=== PATIENT | female | born 1980 | race Caucasian/White ===

== ENCOUNTER 2017-05-05 18:31 | Emergency (ER) | payer MEDICARE, MEDICAID ==
[2017-05-05 19:19] VITALS: BP 125/68
[2017-05-05] MEDS ORDERED: Azithromycin TAB* 250 MG PO ONE (21:28)
--- NOTE | 2017-05-05 21:30 | UC ---
Throat Pain/Nasal Wojciech HPI - HPI Summary HPI Summary: 36 yo female with sore throat/ear ache and congestion x 4 days sore throat worse symptom has felt feverish myalgias mild PEREIRA - History of Current Complaint Chief Complaint: UCRespiratory Stated Complaint: ST/NASAL CONGESTION/PEREIRA Time Seen by Provider: 05/05/17 21:24 Hx Obtained From: Patient Hx Last Menstrual Period: unknown, depo shot Onset/Duration: Gradual Onset, Lasting Days Severity: Mild Pain Intensity: 4 Pain Scale Used: 0-10 Numeric Associated Signs & Symptoms: Positive: Sinus Discomfort, Nasal Discharge - Epiglottits Risk Factors Epiglottis Risk Factors: Negative - Allergies/Home Medications Allergies/Adverse Reactions: Allergies Allergy/AdvReac Type Severity Reaction Status Date / Time Amoxicillin Allergy Intermediate Hives Verified 05/05/17 19:19 Ezetimibe [From Zetia] Allergy Intermediate Unknown Verified 05/05/17 19:19 Reaction Details Penicillins Allergy Intermediate Rash Verified 05/05/17 19:19 Risperidone Allergy Intermediate lactate Verified 05/05/17 19:19 Home Medications: Home Medications Lurasidone (NF) [Latuda (NF)] 80 mg PO DAILY 05/05/17 [History Confirmed ] Nabumetone TAB* [Relafen TAB*] 750 mg PO BID 05/05/17 [History Confirmed ] Topiramate [Topamax 100 mg tab] 1 tab PO DAILY 05/05/17 [History Confirmed 05/05] celeCOXIB CAP* [CeleBREX CAP*] 60 mg PO DAILY 05/05/17 [History Confirmed ] PMH/Surg Hx/FS Hx/Imm Hx Previously Healthy: Yes - Surgical History Surgical History: Yes Surgery Procedure, Year, and Place: gastric bypass 2003, 2 ganglion cysts removed, torn R rotator cuff - Family History Known Family History: Positive: Cardiac Disease, Hypertension - Social History Alcohol Use: None Substance Use Type: None Smoking Status (MU): Never Smoked Tobacco Review of Systems Constitutional: Fever, Chills, Fatigue Skin: Negative Eyes: Negative ENT: Sore Throat, Ear Ache, Nasal Discharge Respiratory: Negative Cardiovascular: Negative Gastrointestinal: Negative Genitourinary: Negative Motor: Negative Neurovascular: Negative Musculoskeletal: Myalgia Neurological: Headache Psychological: Negative All Other Systems Reviewed And Are Negative: Yes Physical Exam Triage Information Reviewed: Yes Appearance: Well-Appearing, No Pain Distress, Well-Nourished Vital Signs: Initial Vital Signs Temp 97.6 F 05/05/17 19:15 Pulse 92 05/05/17 19:15 Resp 18 05/05/17 19:15 BP 125/68 05/05/17 19:15 Pulse Ox 98 05/05/17 19:15 Vital Signs Reviewed: Yes Eyes: Positive: Conjunctiva Clear ENT: Positive: Hearing grossly normal, Pharyngeal erythema, Nasal congestion, Nasal drainage, TMs normal, Tonsillar swelling Neck: Positive: Supple, Enlarged Nodes @ - ant cervical Respiratory: Positive: Lungs clear, Normal breath sounds, No respiratory distress, No accessory muscle use Cardiovascular: Positive: RRR, No Murmur Musculoskeletal: Positive: ROM Intact, No Edema Neurological: Positive: Alert Psychological Exam: Normal Skin Exam: Normal Throat Pain/Nasal Course/Dx - Differential Dx/Diagnosis Provider Diagnoses: acute tonsillitis Discharge - Discharge Plan Condition: Stable Disposition: HOME Prescriptions: Azithromycin TAB* [Zithromax TAB*] 250 mg PO DAILY #6 tab Patient Education Materials: Pharyngitis (ED) Referrals: Arian Castro MD [Primary Care Provider] - Additional Instructions: recheck in 4-5 days if not better recheck sooner if symptoms worsen
== END 2017-05-05 21:40 | disposition home or self-care (01) ==
LOC: UCCORT 18:31
DX: J03.90 Acute tonsillitis, unspecified (principal); Z98.84 Bariatric surgery status; Z88.1 Allergy status to other antibiotic agents; Z88.0 Allergy status to penicillin; Z88.8 Allergy status to other drugs, medicaments and biological substances
CPT/HCPCS: 99202; A9270-GY; G0463

== ENCOUNTER 2018-12-19 14:18 | Emergency (ER) | payer MEDICARE, MEDICAID ==
[2018-12-19 14:37] VITALS: BP 108/84
--- NOTE | 2018-12-19 14:49 | UC ---
Upper Extremity HPI - HPI Summary HPI Summary: 38 year old female with PMH + for MH, HTn, hyperlipidemia, RC surgery R arm presnts with L shoulder pain x 2 days. began after lifting overhead, felt a pop and didn't have pain initially, but developed over few hours to where she is now unable to lift overhead or move her arm away from her body without extreme pain. no trauma, no prior neck, shoulder L injuries. + tingling intermittently that is resolved with movement. - History of Current Complaint Chief Complaint: UCUpperExtremity Stated Complaint: LEFT SHOULDER CONCERN Time Seen by Provider: 12/19/18 14:37 Hx Obtained From: Patient Hx Last Menstrual Period: unknown, depo shot ?: No Onset/Duration: Sudden Onset, Lasting Days Severity Initially: Severe Severity Currently: Severe Pain Intensity: 9 Pain Scale Used: 0-10 Numeric Location Of Pain: Is Discrete @ - l shoudler Character: Sharp, Aching, Throbbing, Spasmodic - Allergies/Home Medications Allergies/Adverse Reactions: Allergies Allergy/AdvReac Type Severity Reaction Status Date / Time amoxicillin Allergy Hives Verified 12/19/18 14:42 ezetimibe [From Zetia] Allergy Unknown Verified 12/19/18 14:42 Reaction Details Penicillins Allergy Rash Verified 12/19/18 14:42 risperidone Allergy See Comment Verified 12/19/18 14:42 Home Medications: Home Medications LORazepam TAB(*) [Ativan 0.5 MG TAB (*)] 0.5 mg PO BEDTIME PRN 12/19/18 [ History Confirmed 12/19/18] Zolpidem TAB* [Ambien*] 10 mg PO BEDTIME PRN 12/19/18 [History Confirmed ] PMH/Surg Hx/FS Hx/Imm Hx Previously Healthy: Yes - htn, elevaged lipds - Surgical History Surgical History: Yes Surgery Procedure, Year, and Place: gastric bypass 2003, 2 ganglion cysts removed, torn R rotator cuff - Family History Known Family History: Positive: Cardiac Disease, Hypertension - Social History Alcohol Use: None Substance Use Type: None Smoking Status (MU): Never Smoked Tobacco Review of Systems All Other Systems Reviewed And Are Negative: Yes Musculoskeletal: Positive: Arthralgia, Decreased ROM, Myalgia Is Patient Immunocompromised?: No Physical Exam Triage Information Reviewed: Yes Appearance: Well-Appearing, No Pain Distress, Well-Nourished Vital Signs: Initial Vital Signs Temp 97.3 F 12/19/18 14:34 Pulse 87 12/19/18 14:34 Resp 16 12/19/18 14:34 BP 108/84 12/19/18 14:34 Pulse Ox 100 12/19/18 14:34 Vital Signs Reviewed: Yes Eyes: Positive: Conjunctiva Clear Musculoskeletal: Positive: No Edema, ROM Limited @ - PROM R shoulder FF to 90, abd 70 with pain at endpoint with distacting patient. with patient aware of movement, FF to 40, ABD to 30. + hakins, neers, speeds, belly, bear, supraspinatus/ infraspinatus testing with pt complainting ot pain at all positions and refusing to do testing properly due to pain. + bicep tendon tenderness, + paraspinal tenderness cervical. negative spurlings. full ROM of elbow. Neurological: Positive: Alert, Muscle Tone Normal - strength 5/5 with R shoulder , elbow, neck flexion, extension, Other: - SITLT distal to R shoulder, plaster tender strength 5/5 b/l OK sign WNL R hand Psychological Exam: Normal Skin Exam: Normal Skin: Positive: Other - no erythema, skin breakdown, bruising Upper Extremity Course/Dx - Course Course Of Treatment: like RC sprain - sling for comfort, steroids to decrease inflammation, follow up with ortho for further eval. - Differential Dx/Diagnosis Provider Diagnosis: Rotator cuff (capsule) sprain Discharge - Sign-Out/Discharge Documenting (check all that apply): Patient Departure All imaging exams completed and their final reports reviewed: No Studies - Discharge Plan Condition: Good Disposition: HOME Prescriptions: predniSONE [Prednisone 20 MG TAB] 20 mg PO SEE INSTRUCTIONS #6 tablet Patient Education Materials: Muscle Spasm (ED) Referrals: Arian Castro MD [Primary Care Provider] - Kwadwo Rivero MD [Medical Doctor] - Additional Instructions: - Steroids daily to decrease pain and inflammation - Ice shoulder as needed for pain - SLing for comfort, remove at least 3-5 times daily. - Billing Disposition and Condition Condition: GOOD Disposition: Home
== END 2018-12-19 14:51 | disposition home or self-care (01) ==
LOC: UCCORT 14:18
DX: S43.422A Sprain of left rotator cuff capsule, initial encounter (principal); X50.9XXA Other and unspecified overexertion or strenuous movements or postures, initial encounter; Y92.9 Unspecified place or not applicable; Z88.0 Allergy status to penicillin; Z88.8 Allergy status to other drugs, medicaments and biological substances
CPT/HCPCS: 99212; G0463

== ENCOUNTER 2019-02-21 20:16 | Emergency (ER) | payer MEDICAID, MEDICARE ==
[2019-02-21 21:03] VITALS: BP 130/84
--- NOTE | 2019-02-21 21:31 | UC ---
Hand/Wrist HPI - HPI Summary HPI Summary: 38-year-old woman comes in with a chief complaint of left hand and wrist pain. Patient fell onto just prior to arrival. She does have full range of motion of the hand and wrist. She's got an ecchymotic area on the left palm is tender to palpation and slightly raised. Her chief concern is what the ecchymotic area is. She is not worried that anything is broken. - History Of Current Complaint Chief Complaint: UCUpperExtremity Stated Complaint: LEFT WRIST/HAND INJ Time Seen by Provider: 02/21/19 21:24 Hx Last Menstrual Period: unknown, depo shot Pain Intensity: 5 - Allergies/Home Medications Allergies/Adverse Reactions: Allergies Allergy/AdvReac Type Severity Reaction Status Date / Time amoxicillin Allergy Hives Verified 02/21/19 21:04 ezetimibe [From Zetia] Allergy Unknown Verified 02/21/19 21:04 Reaction Details Penicillins Allergy Rash Verified 02/21/19 21:04 risperidone Allergy See Comment Verified 02/21/19 21:04 Home Medications: Home Medications Calcium Carbonate/Vitamin D3 [Calcium 500 + Vit D Caplet] 1 each PO DAILY [History Confirmed 02/21/19] hydrOXYzine HCL TAB* [Atarax TAB 50 MG *] 50 mg PO DAILY 02/21/19 [History Confirmed 02/21/19] hydrOXYzine HCL TAB* [Atarax TAB 50 MG *] 100 mg PO BEDTIME 02/21/19 [History Confirmed 02/21/19] traZODone TAB* [Desyrel TAB*] 100 mg PO BEDTIME 02/21/19 [History Confirmed 01/10] PMH/Surg Hx/FS Hx/Imm Hx Previously Healthy: Yes Endocrine History: Hypothyroidism, Dyslipidemia - Surgical History Surgical History: Yes Surgery Procedure, Year, and Place: gastric bypass 2003, 2 ganglion cysts removed, torn R rotator cuff - Family History Known Family History: Positive: Cardiac Disease, Hypertension - Social History Alcohol Use: None Substance Use Type: None Smoking Status (MU): Never Smoked Tobacco Review of Systems All Other Systems Reviewed And Are Negative: Yes Constitutional: Positive: Negative Skin: Positive: Bruising - see hpi Eyes: Positive: Negative ENT: Positive: Negative Respiratory: Positive: Negative Cardiovascular: Positive: Negative Gastrointestinal: Positive: Negative Motor: Positive: Negative Neurovascular: Positive: Negative Musculoskeletal: Positive: Other: - see hpi Neurological: Positive: Negative Psychological: Positive: Negative Is Patient Immunocompromised?: No Physical Exam Triage Information Reviewed: Yes Appearance: Well-Appearing, No Pain Distress, Well-Nourished Vital Signs: Initial Vital Signs Temp 98.0 F 02/21/19 20:59 Pulse 78 02/21/19 20:59 Resp 16 02/21/19 20:59 BP 130/84 02/21/19 20:59 Pulse Ox 100 02/21/19 20:59 Vital Signs Reviewed: Yes Eye Exam: Normal Eyes: Positive: Conjunctiva Clear Neck exam: Normal Neck: Positive: Supple Respiratory: Positive: No respiratory distress Musculoskeletal: Positive: Other: - Left hand has a 2 cm x 5 mm slightly raised ecchymotic area without a skin break on the palmar surface. Is consistent with a bruise. Fingers and wrists have full range of motion normal capillary refill no sensation deficit normal strength. Neurological Exam: Normal Neurological: Positive: Alert, Muscle Tone Normal Psychological Exam: Normal Psychological: Positive: Age Appropriate Behavior Skin: Positive: Other - Left palm, slightly raised 2cm x 5mm eccymosis. No skin break. Hand/Wrist Course/Dx - Course Course Of Treatment: I discussed imaging of the left hand and wrist with the patient. Patient declined x-rays she is not worried about a broken bone. She is more concerned about the ecchymotic area and her palm. This is consistent with an intradermal hematoma. Hand and wrist have full range of motion full-strength normal capillary refill no sensation deficit. No evidence of any skin break or foreign body. At the patient know that she take ibuprofen and I would expect this to heal up on its own. Get rechecked if worse or any other questions or concerns. - Differential Dx/Diagnosis Provider Diagnosis: Contusion of left hand, Left wrist sprain, Sprain of left hand Discharge - Sign-Out/Discharge Documenting (check all that apply): Patient Departure All imaging exams completed and their final reports reviewed: No Studies - Discharge Plan Condition: Stable Disposition: HOME Patient Education Materials: Contusion in Adults (ED), Hand Sprain (ED), Wrist Sprain (ED) Referrals: Arian Castro MD [Primary Care Provider] - Additional Instructions: FOLLOW UP WITH YOUR DOCTOR IF NOT COMPLETELY IMPROVED. GET REEVALUATED SOONER FOR ANY WORSENING OF YOUR CONDITION OR ANY QUESTIONS OR CONCERNS. - Billing Disposition and Condition Condition: STABLE Disposition: Home
== END 2019-02-21 21:36 | disposition home or self-care (01) ==
LOC: UCCORT 20:16
DX: S60.222A Contusion of left hand, initial encounter (principal); S63.502A Unspecified sprain of left wrist, initial encounter; S63.92XA Sprain of unspecified part of left wrist and hand, initial encounter; W19.XXXA Unspecified fall, initial encounter; Y92.9 Unspecified place or not applicable
CPT/HCPCS: 99211; G0463

== ENCOUNTER 2019-09-17 18:34 | Emergency (ER) | payer MEDICAID, OTHER ==
--- OUTSIDE RECORDS SUMMARY | 2019-09-17 18:41 | XMS REPORT ---
:1980 Author Name GitaJenna guerrerodith Address [address] [place] [address] Care Team Providers Name Role Phone Lisbet Allison Unavailable Unavailable PROBLEMS Type Condition ICD9-CM Code XIF14-ZP Code Onset Condition SNOMED Code Dates Status Problem Anal spasm K59.4 Active 41073337 Problem Morbid (severe) E66.01 Active 520709975 obesity due to excess calories Problem Pelvic and R10.2 Active 679306828 perineal pain ALLERGIES Substance Reaction Event Type Date Status penicillin rash Drug Allergy Jul, Active amoxicillin rash Drug Allergy Jul, Active Risperdal Drug Allergy Jul, Active Zetia diarrhea Drug Allergy Jul, Active ENCOUNTERS Encounter Location Date Diagnosis [facility] 103 Aug, OBGYN [place], [place] [id number] [facility] Jul, [place]BG[place] [id number] [facility] 103 Jul, Encounter for OBGYN [facility], gynecological examination [place] [id number] (general) (routine) without abnormal findings Z01.419 ; Encounter for screening for malignant neoplasm of cervix Z12.4 and Encounter for surveillance of injectable contraceptive Z30.42 [facility] 103 15 May, 2019 Encounter for other OBGYN [facility], general counseling and [place] [id number] advice on contraception Z30.09 [facility] 103 15 Feb, 2019 Encounter for other OBGYN [facility], general counseling and [place] [id number] advice on contraception Z30.09 [facility] 103 Feb, Encounter for OBGYN [facility], contraceptive management, [place] [id number] unspecified Z30.9 [facility] 103 Feb, Encounter for OBGYN [facility], contraceptive management, [place] [id number] unspecified Z30.9 [facility] 103 Nov, OBGYN [place], [place] [id number] [facility] 103 Nov, Encounter for OBGYN [facility], contraceptive management, [place] [id number] unspecified Z30.9 [facility] 103 Sep, OBGYN [place] [id number] [facility] 103 Sep, [place]BG[place] [id number] [facility] 103 Jul, [place] [id number] [facility] 103 Jul, [place] [id number] [facility] 103 Jul, [place]BG[place] [id number] [facility] 103 Jul, Encounter for OBGYN [facility], gynecological examination [place] [id number] (general) (routine) without abnormal findings Z01.419 ; Encounter for contraceptive management, unspecified Z30.9 ; Morbid (severe) obesity due to excess calories E66.01 and Encounter for screening for malignant neoplasm of cervix Z12.4 [facility] 103 Jun, OBGYN [place], [place] [id number] [facility] 103 March, [place]BG[place] [id number] [facility] 103 Dec, OBG[place] [id number] [facility] 103 Sep, [place]BG[place] [id number] [facility] 103 Sep, Encounter for other OBGYN [facility], general counseling and [place] [id number] advice on contraception Z30.09 [facility] 103 Jun, Encounter for OBGYN [facility], contraceptive management, [place] [id number] unspecified Z30.9 [facility] 103 Apr, OBGYN [place], [place] [id number] [facility] 103 Jan, OBGYN [place] [id number] [facility] 103 Oct, Encounter for OBGYN [facility], contraceptive management, [place] [id number] unspecified Z30.9 [facility] 103 Oct, Counseling and instruction OBGYN [facility], in natural family planning [place] [id number] to avoid Z30.02 [facility] 103 Oct, Encounter for other OBGYN [facility], general counseling and [place] [id number] advice on contraception Z30.09 [facility] 103 Aug, Pelvic and perineal pain OBGYN [facility], R10.2 and Anal spasm K59.4 [place] [id number] [facility] 103 Jul, Other specified OBGYN [facility], noninflammatory disorders [place] [id number] of vagina N89.8 ; Pelvic and perineal pain R10.2 and Anal spasm K59.4 [facility] 103 Jul, Pelvic and perineal pain OBGYN [facility], R10.2 [place] [id number] [facility] 103 15 Jul, 2016 OBGYN [facility], [place] [id number] [facility] 103 13 Jul, 2016 Candidiasis of vulva and OBGYN [facility], vagina B37.3 [place] [id number] [facility] 103 12 Jul, 2016 OBGYN [place], [place] [id number] [facility] 103 06 Jul, [facility] [place] [id number] (general) (routine) with abnormal findings Z01.411 ; Encounter for screening for malignant neoplasm of cervix Z12.4 ; Encounter for screening for infections with a predominantly sexual mode of transmission Z11.3 ; Pelvic and perineal pain R10.2 ; Encounter for prescription of emergency contraception Z30.012 and Encounter for other general counseling and advice on contraception Z30.09 IMMUNIZATIONS No Known Immunizations SOCIAL HISTORY Never Assessed REASON FOR REFERRAL FUNCTIONAL STATUS PLAN OF CARE Activity Details Follow Up 1 Year Reason: Pending Test ThinPrep Pap Test _ use Standing Order VITAL SIGNS Height 63 in 2019-08-10 Weight 246 lbs 2019-08-10 BMI 43.57 kg/m2 2019-08-10 Blood pressure systolic 124 mm Hg 2019-08-10 Blood pressure diastolic 68 mm Hg 2019-08-10 MEDICATIONS Medication Instructions Dosage Frequency Start End Duration Status Date Date hydroxyzine orally 2 times a 1 tab(s) 12h Active hydrochloride 50 mg day verapamil 120 mg/24 orally once a day 1 cap(s) 24h 30 day(s) Active hours amitriptyline 100 mg orally once a day 1 tab(s) Active (at bedtime) MedroxyPROGESTERone intramuscularly 150 mg 84 Active Acetate 150 mg/mL once Calcium 600+D 600 orally once a day 1 tab(s) 24h Active mg-200 units Vitamin B-12 1000 mcg orally once a day 1 tab(s) 24h Active Depo-Provera intramuscularly 150 mg Feb, day(s) Active Contraceptive 150 once 2019 mg/mL atorvastatin 80 mg orally once a day 1 tab(s) 24h Active levothyroxine 100 mcg orally once a day 1 tab(s) 24h Active (0.1 mg) Latuda 120 mg orally once a day 1 tab(s) 24h Active Ambien 5 mg orally once a day 1 tab(s) Active (at bedtime) nabumetone 750 mg orally BID 1 tab(s) 12h Active Vitamin D3 50,000 orally once a 1 cap(s) Active intl units week Topamax 100 mg orally QD 2 tab(s) 24h Active Flintstones with Iron chewed once a day 2 tab(s) 24h Active Chewable Multiple Vitamins with Iron PROCEDURES No Known procedures RESULTS No Results REASON FOR VISIT Annual Insurance Providers [facility] Member Patient Patient Patient Patient Patient Subscriber Subscriber Subscriber Group Insurance Plan Plan Plan Plan ID Relationship Address Phone Name Date of ID Name Date of No Type Insurance Insurance Insurance Coverage to Subscriber Address Phone Name Dates Medicaid [phone] Medicaid self Kelsy [id number] [facility] [address] [address] [phone] [place] self Kelsy [id number] [address] [address] MEDICAL (GENERAL) HISTORY Type Description Date Medical History morbid obesity Medical History back pain Medical History anxiety Medical History insomnia Medical History depression Medical History hypercholesterolemia Medical History hypothyroidism Medical History sciatic nerve Medical History bulging disc Medical History migraines Surgical History gastric bypass 2003 Surgical History Rt rotator cuff 2011 Surgical History cholecystectomy 2013 Surgical History ganglion cyst removed from Rt hand 2006 Surgical History wisdom teeth extraction Hospitalization History gastric bypass 2003 Hospitalization History psych 1994 Hospitalization History psych 1998 Hospitalization History psych 2000 Hospitalization History psych 2009
--- OUTSIDE RECORDS SUMMARY | 2019-09-17 18:41 | XMS REPORT ---
:1980 Author Organization [facility] Address [address] [place] [address] Care Team Providers Name Role Phone Magali Bruner Unavailable Unavailable PROBLEMS Type Condition ICD9-CM Code [id number] Code Onset Condition SNOMED Code Dates Status Problem Anal spasm K59.4 Active 85616261 Problem Morbid (severe) E66.01 Active 174187781 obesity due to excess calories Problem Pelvic and R10.2 Active 276148802 perineal pain ALLERGIES No Information ENCOUNTERS Encounter Location Date Diagnosis [facility] [address] Aug, OBGYN [place], [place] [id number] [facility] [address] Jul, [place]BGYN [place], [place] [id number] [facility] 103 Jul, Encounter for OBGYN [facility], gynecological examination [place] [id number] (general) (routine) without abnormal findings Z01.419 ; Encounter for screening for malignant neoplasm of cervix Z12.4 and Encounter for surveillance of injectable contraceptive Z30.42 [facility] 103 May, Encounter for other OBGYN [facility], general counseling and [place] [id number] advice on contraception Z30.09 [facility] 103 Feb, Encounter for other OBGYN [facility], general counseling and [place] [id number] advice on contraception Z30.09 [facility] 103 Feb, Encounter for OBGYN [facility], contraceptive management, [place] [id number] unspecified Z30.9 [facility] 103 Feb, Encounter for OBGYN [facility], contraceptive management, [place] [id number] unspecified Z30.9 [facility] 103 Nov, OBGYN [place], [place] [id number] [facility] 103 Nov, Encounter for OBGYN [facility], contraceptive management, [place] [id number] unspecified Z30.9 [facility] 103 Sep, OBGYN [place], [place] [id number] [facility] 103 Sep, [place] [id number] [facility] 103 Jul, [place]BG[place] [id number] [facility] 103 Jul, OBG[place] [id number] [facility] 103 Jul, [place]BGYN [place], [place] [id number] [facility] 103 Jul, Encounter for OBGYN [facility], gynecological examination [place] [id number] (general) (routine) without abnormal findings Z01.419 ; Encounter for contraceptive management, unspecified Z30.9 ; Morbid (severe) obesity due to excess calories E66.01 and Encounter for screening for malignant neoplasm of cervix Z12.4 [facility] 103 Jun, OBGYN [place], [place] [id number] [facility] 103 March, OBGYN [place] [id number] [facility] 103 Dec, OBGYN [place] [id number] [facility] 103 Sep, OBG[place] [id number] [facility] 103 Sep, Encounter for other OBGYN [facility], general counseling and [place] [id number] advice on contraception Z30.09 [facility] 103 Jun, Encounter for OBGYN [facility], contraceptive management, [place] [id number] unspecified Z30.9 [facility] 103 Apr, OBG[place] [id number] [facility] 103 Jan, [place]BG[place] [id number] [facility] 103 Oct, Encounter for OBGYN [facility], contraceptive management, [place] [id number] unspecified Z30.9 [facility] 103 Oct, Counseling and instruction OBGYN [facility], in natural family planning [place] [id number] to avoid Z30.02 [facility] 103 Oct, Encounter for other OBGYN [facility], general counseling and [place] [id number] advice on contraception Z30.09 [facility] 103 Aug, Pelvic and perineal pain OBGYN [facility], R10.2 and Anal spasm K59.4 [place] [id number] [facility] 103 Jul, Other specified OBGYN [facility], noninflammatory disorders [place] [id number] of vagina N89.8 ; Pelvic and perineal pain R10.2 and Anal spasm K59.4 [facility] 103 Jul, Pelvic and perineal pain OBGYN [facility], R10.2 [place] [id number] [facility] 103 Jul, OBGYN [place], [place] [id number] [facility] 103 13 Jul, 2016 Candidiasis of vulva and OBGYN [facility], vagina B37.3 [place] [id number] [facility] 103 12 Jul, 2016 OBGYN [place], [place] [id number] [facility] 103 06 Jul, [facility] [place] [id number] (general) (routine) with abnormal findings Z01.411 ; [...] FOR REFERRAL FUNCTIONAL STATUS PLAN OF CARE VITAL SIGNS MEDICATIONS Medication Instructions Dosage Frequency Start End Duration Status Date Date Ambien 5 mg orally once a day 1 tab(s) Active (at bedtime) Vitamin D3 50,000 orally once a 1 cap(s) Active intl units week verapamil 120 mg/24 orally once a day 1 cap(s) 24h 30 day(s) Active hours hydroxyzine orally 2 times a 1 tab(s) 12h Active hydrochloride 50 mg day Latuda 120 mg orally once a day 1 tab(s) 24h Active levothyroxine 100 mcg orally once a day 1 tab(s) 24h Active (0.1 mg) Vitamin B-12 1000 mcg orally once a day 1 tab(s) 24h Active MedroxyPROGESTERone intramuscularly 150 mg 84 Active Acetate 150 mg/mL once Topamax 100 mg orally QD 2 tab(s) 24h Active amitriptyline 100 mg orally once a day 1 tab(s) Active (at bedtime) nabumetone 750 mg orally BID 1 tab(s) 12h Active Flintstones with Iron chewed once a day 2 tab(s) 24h Active Chewable Multiple Vitamins with Iron atorvastatin 80 mg orally once a day 1 tab(s) 24h Active Depo-Provera intramuscularly 150 mg Jul, day(s) Active Contraceptive 150 once 2019 mg/mL Calcium 600+D 600 orally once a day 1 tab(s) 24h Active mg-200 units PROCEDURES No Known procedures RESULTS No Results REASON FOR VISIT Depo Rx Insurance Providers [facility] Health Health Member Patient Patient Patient Patient Patient Subscriber Subscriber Subscriber Group Insurance Plan Plan Plan Plan ID Relationship Address Phone Name Date of ID Name Date of No Type Insurance Insurance Insurance Coverage to Subscriber Address Phone Name Dates Medicaid [phone] Medicaid self Kelsy [id number] [facility] [address] [address] [phone] [place] self Kelys [id number] [place] [id number] [facility] [phone] MEDICAL (GENERAL) HISTORY Type Description Date Medical History morbid obesity Medical History back pain Medical History anxiety Medical History insomnia Medical History depression Medical History hypercholesterolemia Medical History hypothyroidism Medical History sciatic nerve Medical History bulging disc Medical History migraines Surgical History gastric bypass 2004 Surgical History Rt rotator cuff 2012 Surgical History cholecystectomy 2013 Surgical History ganglion cyst removed from Rt hand 2006 Surgical History wisdom teeth extraction Hospitalization History gastric bypass 2003 Hospitalization History psych 1994 Hospitalization History psych 1998 Hospitalization History psych 2000 Hospitalization History psych 2009
[2019-09-17 18:49] VITALS: BP 120/77
--- NOTE | 2019-09-17 19:05 | UC ---
Ear Complaint HPI - HPI Summary HPI Summary: C/O possible FB/ insect in the right ear canal. Keeps hearing something in the canal. Has URI symptoms with cough, congestion and sore throat. - History of Current Complaint Chief Complaint: UCEar Stated Complaint: POSSIBLE FB RIGHT EAR Hx Obtained From: Patient Hx Last Menstrual Period: depo ?: No Onset/Duration: Gradual Onset, Lasting Days - 5, Still Present Severity Initially: Mild Severity Currently: Mild Pain Intensity: 0 Aggravating Factors: Nothing Alleviating Factors: Nothing Associated Signs/Symptoms: Positive: Foreign Body Sensation, URI Symptoms - Allergies/Home Medications Allergies/Adverse Reactions: Allergies Allergy/AdvReac Type Severity Reaction Status Date / Time amoxicillin Allergy Hives Verified 09/17/19 18:41 ezetimibe [From Zetia] Allergy Unknown Verified 09/17/19 18:41 Reaction Details Penicillins Allergy Rash Verified 09/17/19 18:41 risperidone Allergy See Comment Verified 09/17/19 18:41 Home Medications: Home Medications Verapamil TAB* [Calan TAB*] 120 mg PO BEDTIME 09/17/19 [History Confirmed ] PMH/Surg Hx/FS Hx/Imm Hx Endocrine History: Thyroid Disease, Dyslipidemia Neurological History: Migraine Psychological History: Schizophrenia - Surgical History Surgical History: Yes Surgery Procedure, Year, and Place: gastric bypass 2003, 3 ganglion cysts removed, torn R rotator cuff. cholecystectomy--2011 - Family History Known Family History: Positive: Cardiac Disease, Hypertension - Social History Occupation: Employed Full-time Lives: Alone Alcohol Use: None Substance Use Type: None Smoking Status (MU): Never Smoked Tobacco Review of Systems All Other Systems Reviewed And Are Negative: Yes ENT: Positive: Sore Throat, Ear Ache, Nasal Discharge Respiratory: Positive: Cough Physical Exam Triage Information Reviewed: Yes Appearance: Well-Appearing, No Pain Distress, Obese Vital Signs: Initial Vital Signs Temp 97.2 F 09/17/19 18:45 Pulse 100 09/17/19 18:45 Resp 16 09/17/19 18:45 BP 120/77 09/17/19 18:45 Pulse Ox 100 09/17/19 18:45 Vital Signs Reviewed: Yes Eyes: Positive: Conjunctiva Clear ENT: Positive: Pharynx normal, Nasal congestion, TMs normal - and canal is clear AD Neck exam: Normal Respiratory Exam: Normal Cardiovascular Exam: Normal Musculoskeletal Exam: Normal Neurological Exam: Normal Psychological Exam: Normal Skin Exam: Normal Ear Complaint Course/Dx - Differential Dx/Diagnosis Differential Diagnosis/HQI/PQRI: Barotrauma, Otitis Externa, Otitis Media, URI Provider Diagnosis: Upper respiratory infection, Dysfunction of right eustachian tube Discharge ED - Sign-Out/Discharge Documenting (check all that apply): Patient Departure All imaging exams completed and their final reports reviewed: No Studies - Discharge Plan Condition: Stable Disposition: HOME Patient Education Materials: Upper Respiratory Infection (ED) Referrals: Arian Castro MD [Primary Care Provider] - Additional Instructions: NASAL SPRAYS AND DROPS: Afrin in the PUMP/ MIST bottle (Get generic 12 hours nasal decongestant spray). Tilt your head down and look at the floor while doing the spray. Decongestant nasal sprays and drops often give dramatic relief from congestion. They are often recommended for patients with sinus infection to assist with sinus drainage. Persons with high blood pressure should consult the doctor before using these nasal sprays. Afrin and Solomon-Synephrine are common kema-gxy-unuhkpd preparations. They should not be used for more than five days, as "rebound" congestion can occur - - the congestion flares as the drug wears off. A way of dealing with this rebound congestion problem is to medicate only one nostril each time, allowing the other nostril to recover from the medicine' s effects. When you no longer need the drug during the day, spray only one nostril each night. This helps you sleep well without severe rebound congestion. Call the doctor if you develop severe headache, palpitations, or chest pain. EUSTATION TUBE DYSFUNCTION: The tube that allows the middle ear to equalize the pressure with the outside air is blocked. This can be due to colds, allergies, smoke, or other irritants. Short term treatment can include Afrin, sudafed and nasal cortisone sprays for allergies. - Billing Disposition and Condition Condition: STABLE Disposition: Home
== END 2019-09-17 19:18 | disposition home or self-care (01) ==
LOC: UCCORT 18:34
DX: J06.9 Acute upper respiratory infection, unspecified (principal); H69.91 Unspecified Eustachian tube disorder, right ear; E66.9 Obesity, unspecified; G43.909 Migraine, unspecified, not intractable, without status migrainosus; Z79.899 Other long term (current) drug therapy; Z88.0 Allergy status to penicillin; Z88.8 Allergy status to other drugs, medicaments and biological substances
CPT/HCPCS: 99211; G0463

== ENCOUNTER 2019-11-27 12:46 | Emergency (ER) | payer OTHER ==
--- OUTSIDE RECORDS SUMMARY | 2019-11-27 13:03 | XMS REPORT | Continuity of Care Document ---
:1980 External Reference #:[id number] Author Name Arian Castro MD Address [address] [place] [id number] Care Team Providers Name Role Phone Willy Mittal MD - Orthopaedic Care Team Information Clinical Academic Allergist Surgery Jose Lei DR Care Team Information Clinical Academic Allergist [phone] Problems Active Problems Provider Date Hypoglycemia Arian Castro MD Onset: 09/30/2012 Vitamin D deficiency Arian Castro MD Onset: 03/11/2012 Carpal tunnel syndrome Arian Castro MD Onset: 07/06/2008 Constipation Arian Castro MD Onset: 08/09/2007 Low back pain Arian Castro MD Onset: 08/09/2007 Chronic schizoaffective schizophrenia Arian Castro MD Onset: 2004 Morbid obesity Arian Castro MD Onset: 02/20/2005 Pure hypercholesterolemia Arian Castro MD Onset: 02/20/2005 Hypothyroidism Arian Castro MD Onset: 02/20/2005 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 Arian Castro MD Onset: 12/2015 psychotic features Factor V Leiden mutation Arian Castro MD Onset: 04/12/2016 Cobalamin deficiency Arian Castro MD Onset: 05/26/2016 History of bariatric surgical procedure Arian Castro MD Onset: 2017 Migraine without aura, not refractory Arian Castro MD Onset: 2018 Social History Type Date Description Comments Sex Unknown ETOH Use Never used alcohol Tobacco Use Start: Unknown Patient has never smoked Smoking Status Reviewed: 02/16/19 Patient has never smoked Allergies, Adverse Reactions, Alerts Active Allergies Reaction Severity Comments Date Amoxicillin 06/22/2007 Risperidone 02/19/2005 Penicillin 12/03/2014 Ceclor 12/03/2014 Zetia 12/03/2014 Medications Active Medications SIG Qnty Indications Ordering Date Provider Verapamil HCL ER take one tablet 30tabs G43.009 Digiovanna, 06/26/2019 120mg by mouth every MD Arian Tablets ER other day for 1 week then dc Animal Shapes/Iron Chew & Swallow 2 60units Z98.84 Digiovanna, 05/25/2019 18mg Tablets By Mouth MD Arian Chewtabs Once Daily Levothyroxine Sodium 1 by mouth every 30tabs E03.9 Digiovanna, 05/01/2019 day MD Arian 125mcg Tablets Sumatriptan Succinate take 1 tablet 30tabs R51 Digiovanna, 05/01/2019 daily if needed MD Arian 50mg Tablets for headache, max 6/week Hydroxyzine Pamoate 1 by mouth every Digiovanna, 02/16/2019 50mg morning, 2 at MD Arian Capsules night Trazodone HCL take one tablet 30tabs Digiovanna, 02/16/2019 100mg by mouth at MD Arian Tablets bedtime Nabumetone Take 1 & 1/2 90tabs M25.559 Digiovanna, 11/28/2018 500mg Tablets Tablets By Mouth MD Arian Two Times A Day With Food as Needed Amitriptyline HCL take 1/2 tablet 30tabs G44.209 Eliseiovanjosé luis, 08/20/2017 100mg by mouth at MD Arian Tablets bedtime for 1 week, then 1/4 tab for 1 week then dc G47.00 F33.2 Vitamin B-12 2 by mouth every otc D51.9 Arian Castro, 05/26/2016 1000mcg day Tablets Vitamin D take 2 capsules by 10caps E55.9 Arian Castro, 10/10/2015 (Ergocalciferol) mouth once a week [id number] Capsules Topamax 2 by mouth QHS F25.8 Unknown 04/02/2015 100mg Tablets F33.2 Atorvastatin Calcium Take One Tablet 90tabs E78.00 Arian Castro, 80mg By Mouth Every MD Tablets Evening Calcium Take One Tablet 60tabs Z98.84 Arian Castro, 10/21/2012 Carbonate-Vitamin D By Mouth Twice A MD Day [id number] Tablets E55.9 Acetaminophen 2 po q 4 hours 100tabs Arian Castro 04/21/2005 325mg Tablets prn MD Lisa 1.5 Tab Daily F25.8 Unknown 80mg Tablets F33.2 Depo-Provera 150mg intramuscular every 3 Unknown 150mg/ml Suspension months History Medications Doxycycline 1 tab by mouth 14caps J01.90 Ashley Schwarz, 09/19/2019 - Monohydrate twice a day 09/26/2019 100mg for 7 days Capsules Medications Administered in Office Medication SIG Qnty Indications Ordering Provider Date Depo Medrol 40 MG Arian Castro MD 09/19/2018 Injection Immunizations CPT Code Status Date Vaccine Reaction Lot # [id number] Given 09/13/2017 Tetanus And Diptheria Toxoid 7 Years And [id number] Older Preserv Free [id number] Given 05/03/2000 Meningococcal Immunization [id number] Refused 10/03/2019 Influenza Vac, Quadrivalent, Split, 0.5mL Dosage, Im Use [id number] Refused 09/14/2018 Flu Vaccine NOS WILL NOT BE GETTING Q2035 Refused 05/23/2018 Afluria Imunization [id number] Refused 07/11/2012 Afluria Or Fluvirin Flu Vac Intramuscular Vital Signs Date Vital Result Comment 10/03/2019 9:40am Weight 251.00 lb Heart Rate 72 /min BP Systolic 120 mmHg BP Diastolic 78 mmHg Respiratory Rate 18 /min Height 63 inches 5'3" BMI (Body Mass Index) 44.5 kg/m2 09/19/2019 2:23pm Body Temperature 99.6 F Weight 241.00 lb Heart Rate 76 /min BP Systolic 120 mmHg BP Diastolic 74 mmHg Respiratory Rate 18 /min Height 63 inches 5'3" BMI (Body Mass Index) 42.7 kg/m2 Results Test Acquired Date Facility Test Result H/L Range Note Lipid Treatment 04/20/2019 [facility] Cholesterol 209 mg/dL High 50-199 1 Triglycerides 99 mg/dL 30-200 HDL 42 mg/dL 35-85 2 Chol/ HDL Ratio 5.0 ratio 3.7-5.6 VLDL 20 mg/dL 2-29 LDL (Calc) 148 mg/dL High 20-99 3 Alt 22 U/L 3-42 Ast 26 U/L 8-42 Laboratory test finding 04/20/2019 [facility] TSH 4.24 uIU/mL 0.35-4.94 Vitamin D 25 Hydroxy 17 ng/mL Low 30-100 4 Vitamin B12 813 pg/mL 180-914 CBC with Auto Diff-fcmg 04/20/2019 [facility] WBC 6.0 K/uL 4.1-11.0 RBC 4.32 M/uL 4.00-5.40 Hemoglobin 13.8 gm/dL 12.0-16.0 Hematocrit 41.2 % 36.0-47.0 MCV 95.3 fL 80.0-97.0 MCH 32.0 pg 27.0-32.0 MCHC 33.6 g/dL 32.0-36.0 RDW 13.3 % 11.5-14.5 PLT Count 259 K/ul 140-400 MPV 8.3 FL 7.1-10.7 Neutrophil 51.3 % 35.0-75.0 Lymphocyte 40.6 % 16.0-52.0 Monocyte 5.8 % 2.0-10.0 Eosinophil 1.8 % 0.0-5.0 Basophil 0.5 % 0.0-4.0 Abs Neutrophils 3.1 K/uL 2.1-8.0 Abs Lymphocytes 2.4 K/uL 0.8-5.5 Abs Monocytes 0.3 K/uL 0.1-1.0 Abs Eosinophils 0.1 K/uL 0.0-0.5 Abs Basophils 0.0 K/uL 0.0-0.3 Laboratory test finding 04/20/2019 [facility] Ferritin 26.4 ng/ml 11.0- 306.8 Basic (BMP) 04/20/2019 [facility] Sodium 141 mmol/L 135-146 5 Potassium 4.3 mmol/L 3.5-5.2 Chloride# 110 mmol/L 97-110 6 Carbon Dioxide 22 mmol/L Low 24-34 Glucose 85 mg/dL 70-105 BUN 11 mg/dL 6-26 Creatinine 1.0 mg/dL 0.5-1.4 Calcium 9.2 mg/dL 8.5-10.5 7 Female Egfr 76 >60 8 Male Egfr 101 >60 9 Anion Gap 9 mmol/L 5-15 10 Urine HCG 04/15/2019 [facility] Urine HCG NEGATIVE Negative 11, 12 (Qualitative) (315)- - (Qualitative) Source: URINE, CLEAN CAT <SEE NOTE> 13 Urinalysis With 04/15/2019 [facility] Urine Color YELLOW Yellow Microscopic (315)- - Urine Clarity CLEAR Clear Urine Glucose - Dipstick NEGATIVE mg/dL Negative Urine Bilirubin - Dipstick NEGATIVE Negative Urine Ketone NEGATIVE mg/dL Negative Urine Specific Esko 1.015 Normal 1.010-1.030 Urine Blood NEGATIVE Negative Urine PH 6.0 Low 6.5-7.5 Urine Protein - Dipstick NEGATIVE mg/dL Negative Urine Urobilinogen - Dipstick 0.2 E.U./dL Normal 0.2-1.0 Urine Nitrite - Dipstick NEGATIVE Negative Urine Leuk Esterase MODERATE Abnormal Negative Urine RBC NONE SEEN rbc/hpf 0-2 Urine WBC 5-10 wbc/hpf 0-7 Urine Epithelial Cells VERY FEW /lpf None Seen Urine Bacteria FEW None Seen Source: URINE, CLEAN CAT <SEE NOTE> 14 Urine Culture 04/15/2019 [facility] Urine Culture MIXED URETHRAL F 15 (315)- - <SEE NOTE> Quantity 10,000 - 100,000 <SEE NOTE> 16 CBS W/Automated 04/15/2019 [facility] White Blood 7.4 K/ uL Normal 3.1-10.7 Diff (315)- - Count Red Blood Count 4.35 M/uL Normal 3.90-5.40 Hemoglobin 14.0 gm/dL Normal 11.6-15.8 Hematocrit 41.6 % Normal 36.0-46.1 Mean Cell Volume 95.6 fl Normal 80.9-99.0 Mean Corpuscular HGB 32.2 pg Normal 25.9-32.7 Mean Corpuscular HGB Conc 33.7 g/dL Normal 30.8-34.3 Platelet Count 280 K/uL Normal 155-360 Red Cell Distri Width SD 46.4 fl Normal 36-47 Red Cell Distri Width %CV 13.2 % Normal 11.7-14.4 Mean Platelet Volume 9.8 fl Normal 8.9-12.4 Neut% 47.8 % Normal 40.4-72.8 Lymph % 43.7 % High 20.0-42.0 Cass % 6.1 % Normal 4.3-13.2 Eo% 1.6 % Normal 0.0-6.6 Bas% 0.5 % Normal 0.0-1.1 Immature Grans 0.3 % Normal 0.0-5.0 NRBC % 0.0 /100WBC < 10/ 100 WBC Neut# 3.55 K/uL Normal 1.8-7.0 Lymph # 3.25 K/uL Normal 1.0-4.0 Cass # 0.45 K/uL Normal 0.3-0.9 Eos # 0.12 K/uL Normal 0.0-0.5 Baso # 0.04 K/uL Normal 0.0-0.1 Immature Grans Absolute 0.02 K/uL NRBC # 0.00 K/uL Comprehensive 04/15/2019 [facility] Glucose 85 mg/dL Normal 74-106 Metabolic Panel (315)- - BUN 10 mg/dL Normal 7-18 Creatinine 0.8 mg/dL Normal 0.6-1.3 Glom Filtration Rate, Estimate >60 mL/min >60 If >60 mL/min >60 17 BUN/Creat 12.5 ratio Sodium 141 mmol/L Normal 136-145 Potassium 4.0 mmol/L Normal 3.5-5.1 Chloride 113 mmol/L High 98-107 Carbon Dioxide 21 mmol/L Normal 21-32 Anion Gap 7 mEq/L Low 8-16 Calcium 8.5 mg/dL Normal 8.5-10.1 Total Protein 7.2 g/dL Normal 6.4-8.2 Albumin 3.5 g/dL Normal 3.4-5.0 Globulin 3.7 g/dL Normal 1.9-4.3 Alb/Glob 0.9 ratio Bilirubin,Total 0.3 mg/dL Normal 0.2-1.0 Sgot/Ast 23 U/L Normal 15-37 SGPT/Alt 27 U/L Normal 12-78 Alkaline Phosphatase 106 U/L Normal 45-117 1 05/10 preOV 2 Per NCEP ATP III Guidelines: Results lower than 40 mg/dL are suggestive of increased risk for coronary artery disease. Results > or = to 60 mg/dL are considered a negative risk factor. 3 Per NCEP ATP III Guidelines: Normal Population <130 Patients with medical conditions: CHD/DM Optimal: <100 Borderline high: 130-159 High: 160-189 Very high: >189 4 Clinical Guidelines for recommended serum 25(OH)Vitamin D Deficient at less than 20 ng/mL Insufficient at 20 to <30 ng/mL Sufficient at 30-100 ng/mL Toxicity at greater than 100 ng/mL 5 Updated reference range on new analyzer 6 Updated reference range on new analyzer 7 Updated reference range 03-22-2019 8 Concerning GFR Guidelines for Americans: Normal function or mild renal disease, if clinically at risk: >/= 60 mL/min Moderately decreased: 30-59 Severely decreased: 15-29 Renal failure: <15 There is reduced accuracy above 60ml/min/1.73 m squared, but the numeric value may be clinically useful in the near 60 range 9 Concerning GFR Guidelines: Normal function or mild renal disease, if clinically at risk: >/= 60 mL/min Moderately decreased: 30-59 Severely decreased: 15-29 Renal failure: <15 There is reduced accuracy above 60ml/min/1.73 m squared, but the numeric value may be clinically useful in the near 60 range Glomerular Filtration Rate (GFR) is estimated based on the CKD-EPI equation, which assumes a steady state for creatinine as recommended by the National Kidney Disease Education Program in conjunction with the National Institutes of Health and the National Kidney Foundation. Clinical conditions in which it may be necessary to measure GFR by using clearance methods include extremes of age and body size, severe malnutrition or obesity, diseases of skeletal muscle, paraplegia or quadriplegia, vegetarian diet, rapidly changing kidney function, and calculation of the dose of potentially toxic drugs that are excreted by the kidneys. 10 Updated Reference Range 11 PEREIRA, DIZZY, BLURRY VISION 12 FIRST MORNING SPECIMENS GENERALLY CONTAIN THE HIGHEST CONCENTRATION OF HCG AND ARE RECOMMENDED FOR EARLY DETECTION OF . Method: Quidel QuickVue One-Step Immunoassay 13 URINE, CLEAN CATCH 14 URINE, CLEAN CATCH 15 MIXED URETHRAL KIT 16 10,000 - 100,000 CFU/mL 17 Note: Persistent reduction for 3 months or more in an eGFR <60 mL/min/1.73 m2 defines CKD. Patients with eGFR values >/=60 mL/min/1.73 m2 may also have CKD if evidence of persistent proteinuria is present. The original MDRD equation for estimated GFR is not valid for patients less than 18 years of age. Additional information may be found at www.kdoqi.org. Procedures Date Code Description Status 09/19/2019 00240 Measure Blood Oxygen Level Single Determination Completed 06/27/2019 29229 Electrocardiogram Complete Completed Medical Devices Description No Information Available Encounters Type Date Location Provider Dx Diagnosis Office Visit 09/19/2019 [facility] Constance Castellon NP J01.90 Acute sinusitis, 2:00p unspecified H65.03 Acute serous otitis media, bilateral R05 Cough Office Visit 06/27/2019 10:45a [facility] Arian Castro, G43.009 Migraine w /o aura, not intractable, w/o status migrainosus E66.01 Morbid (severe) obesity due to excess calories Z68.41 Body mass index (BMI) 40.0-44.9, adult Office Visit 05/24/2019 10:45a [facility] Arian Castro G43.009 Migraine w /o aura, MD not intractable, w/o status migrainosus Office Visit 05/01/2019 10:00a [facility] Arian Castro, E03.9 Hypothyroidism, unspecified E78.00 Pure hypercholesterolemia, unspecified E55.9 Vitamin D deficiency, unspecified D51.9 Vitamin B12 deficiency anemia, unspecified Z98.84 Bariatric surgery status M54.5 Low back pain Z68.41 Body mass index (BMI) 40.0-44.9, adult E66.01 Morbid (severe) obesity due to excess calories R51 Headache Z13.31 Encounter for screening for depression Assessments Date Code Description Provider 10/03/2019 Z79.899 [facility] Arian Castro MD 10/03/2019 G43.009 Migraine without aura, not intractable, Arian Castro MD without status migra 10/03/2019 F25.8 Other schizoaffective disorders Arian Castro MD 09/19/2019 J01.90 Acute sinusitis, unspecified Constance Castellon NP 09/19/2019 H65.03 Acute serous otitis media, bilateral Constance Castellon NP 09/19/2019 R05 Cough Constance Castellon NP 06/27/2019 G43.009 Migraine without aura, not intractable, Arian Castro MD without status migra 06/27/2019 E66.01 Morbid (severe) obesity due to excess Arian Castro MD calories 06/27/2019 Z68.41 Body mass index (BMI) 40.0-44.9, adult Arian Castro MD 05/24/2019 G43.009 Migraine without aura, not intractable, Arian Castro MD without status migra 05/01/2019 E03.9 Hypothyroidism, unspecified Arian Castro MD 05/01/2019 E78.00 Pure hypercholesterolemia, unspecified Arian Castro MD 05/01/2019 E55.9 Vitamin D deficiency, unspecified Arian Castro MD 05/01/2019 D51.9 Vitamin B12 deficiency anemia, unspecified Arian Castro MD 05/01/2019 Z98.84 Bariatric surgery status Arian Castro MD 05/01/2019 M54.5 Low back pain Arian Castro MD 05/01/2019 Z68.41 Body mass index (BMI) 40.0-44.9, adult Arian Castro MD 05/01/2019 E66.01 Morbid (severe) obesity due to excess Arian Castro MD calories 05/01/2019 R51 Headache Arian Castro MD 05/01/2019 Z13.31 Encounter for screening for depression Arian Castro MD 04/20/2019 E78.00 Pure hypercholesterolemia, unspecified Arian Castro MD 04/20/2019 E78.00 Pure hypercholesterolemia, unspecified Schedule, Laboratory 04/20/2019 E03.9 Hypothyroidism, unspecified Arian Castro MD 04/20/2019 E03.9 Hypothyroidism, unspecified Schedule, Laboratory 04/20/2019 E55.9 Vitamin D deficiency, unspecified Arian Castro MD 04/20/2019 E55.9 Vitamin D deficiency, unspecified Schedule, Laboratory 04/20/2019 D51.9 Vitamin B12 deficiency anemia, unspecified Arian Castro MD 04/20/2019 D51.9 Vitamin B12 deficiency anemia, unspecified Schedule, Laboratory 04/20/2019 Z98.84 Bariatric surgery status Arian Castro MD 04/20/2019 Z98.84 Bariatric surgery status Schedule, Laboratory 04/20/2019 E78.00 Pure hypercholesterolemia, unspecified [facility] 04/20/2019 E03.9 Hypothyroidism, unspecified [facility] 04/20/2019 E55.9 Vitamin D deficiency, unspecified [facility] 04/20/2019 D51.9 Vitamin B12 deficiency anemia, unspecified [facility] 04/20/2019 Z98.84 Bariatric surgery status [facility] Plan of Treatment Future Appointment(s):10/26/2019 8:10 am - Schedule, Laboratory at [facility]2018 10:00 am - Arian Castro MD at [facility]10/03/2019 - Arian Castro MDZ79.899 [facility] jail [facility] drug therapyFollow up:Follow up- as lnjiwgwluY70.009 Migraine without aura, not intractable, without status nchraK18.8 Other schizoaffective disorders Functional Status Description No Information Available Mental Status Description No Information Available Referrals Description No Information Available
[2019-11-27 13:30] VITALS: BP 112/78
--- NOTE | 2019-11-27 13:35 | UC ---
General HPI - HPI Summary HPI Summary: 39 yo who felt a strain in the sternal area acutely when she turned in bed the other day. Since then, she has had pain with movement as well as with breathing. She uses nabumatone (Relafen) 750mg twice daily for chronic back and hip pain. She has been using acetaminophen 1000mg once or twice per day without relief. reports no increase in cough or shortness of breath. - History of Current Complaint Stated Complaint: PULLED MUSCLE IN CHEST Time Seen by Provider: 11/27/19 13:27 Hx Obtained From: Patient Hx Last Menstrual Period: depo Onset/Duration: Sudden Onset, Lasting Days Timing: Constant Onset Severity: Moderate Current Severity: Moderate Pain Location at: upper to mid sternal Pain Radiates to: radiates to both right and left chest Character: stabbing Alleviating: trying heat and otc meds, already on nsaid daily Associated Signs & Symptoms: Positive: Chest Pain - Allergy/Home Medications Allergies/Adverse Reactions: Allergies Allergy/AdvReac Type Severity Reaction Status Date / Time amoxicillin Allergy Hives Verified 11/27/19 13:20 ezetimibe [From Zetia] Allergy Diarrhea Verified 11/27/19 13:20 Penicillins Allergy Rash Verified 11/27/19 13:20 risperidone Allergy See Comment Verified 11/27/19 13:20 PMH/Surg Hx/FS Hx/Imm Hx Endocrine History: Hypothyroidism Psychological History: Depression - major depression with psychosis (auditory hallucinations). - Surgical History Surgical History: Yes Surgery Procedure, Year, and Place: gastric bypass 2003, 3 ganglion cysts removed, torn R rotator cuff. cholecystectomy--2011 - Family History Known Family History: Positive: Cardiac Disease, Hypertension - Social History Occupation: Disabled Lives: Alone Alcohol Use: None Substance Use Type: None Smoking Status (MU): Never Smoked Tobacco Review of Systems All Other Systems Reviewed And Are Negative: Yes Constitutional: Positive: Fatigue - poor sleep Skin: Positive: Negative Eyes: Positive: Negative ENT: Positive: Negative Respiratory: Positive: Shortness Of Breath - due to inability to take a deep breath. Negative: Cough Cardiovascular: Positive: Chest Pain. Negative: Palpitations Gastrointestinal: Positive: Negative Genitourinary: Positive: Negative Motor: Positive: Negative Neurovascular: Positive: Negative Musculoskeletal: Positive: Other: - pain in anterior chest with arm movement and position changes. Neurological: Positive: Negative Psychological: Positive: Negative Is Patient Immunocompromised?: No Physical Exam Triage Information Reviewed: Yes Appearance: Pain Distress - mild to moderate, worse with movement., Obese ENT: Positive: Pharynx normal Neck: Positive: Supple, Nontender, No Lymphadenopathy Respiratory Exam: Other - tenderness to palpation both right and left sternal border, along pectoral origin. Respiratory: Positive: Lungs clear, Normal breath sounds, No respiratory distress Cardiovascular: Positive: RRR, No Murmur Musculoskeletal: Positive: Strength Intact, ROM Intact Neurological Exam: Normal Neurological: Positive: Alert, Muscle Tone Normal Psychological Exam: Normal Skin Exam: Normal Course/Dx - Course Course Of Treatment: discussed symptomatic treatment of chest wall pain. - Differential Dx - Multi-Symptom Differential Diagnoses: Other - chest wall strain, pnuemonia - Diagnoses Provider Diagnosis: Chest wall muscle strain Discharge ED - Sign-Out/Discharge Documenting (check all that apply): Patient Departure All imaging exams completed and their final reports reviewed: No Studies - Discharge Plan Condition: Stable Disposition: HOME Patient Education Materials: Chest Wall Pain (ED) Referrals: Arian Castro MD [Primary Care Provider] - Additional Instructions: The pain in your chest is due to strained pectoral muscles, and you will likely have pain for another 4 or 5 days. Continue use of Relafen for pain control. Continue heat to the chest wall. You can buy over the counter 4% lidocaine patches. These can be cut into strips and placed on the areas of soreness. You might try Arnica gel, which is a topical pain reliever. The pharmacist can direct you to this (usually in the pain control aisle with the muscle rubs.). - Billing Disposition and Condition Condition: STABLE Disposition: Home
== END 2019-11-27 14:01 | disposition home or self-care (01) ==
LOC: UCCORT 12:46
DX: S29.011A Strain of muscle and tendon of front wall of thorax, initial encounter (principal); X58.XXXA Exposure to other specified factors, initial encounter; Y92.9 Unspecified place or not applicable; Z88.0 Allergy status to penicillin; Z88.8 Allergy status to other drugs, medicaments and biological substances; R06.02 Shortness of breath
CPT/HCPCS: 99211; G0463

== ENCOUNTER 2021-10-17 17:11 | Inpatient (IN) ==
[2021-10-17 18:01] LABS: ABS Basophils 0.1 10^3/ul (0-0.2); ABS Eosinophils 0.2 10^3/ul (0-0.6); ABS Lymphocytes 2.7 10^3/ul (1.0-4.8); ABS Monocytes 0.5 10^3/ul (0-0.8); ABS Neutrophils 5.7 10^3/ul (1.5-7.7); Eosinophil % 1.8 %; Hematocrit 44 % (35-47); Hemoglobin 14.7 g/dL (12.0-16.0); Mean Corpuscular HGB Conc 33 g/dL (31-36); Mean Corpuscular Hemoglobin 33 pg (27-31); Mean Corpuscular Volume 99 fL (80-97); Mean Platelet Volume 8.4 fL (7.4-10.4); Nucleated Red Blood Cells % 0.1; Platelet Count 295 10^3/uL (150-450); Red Blood Count 4.48 10^6 /uL (3.70-4.87); Red Cell Distribution Width 15 % (10-15); White Blood Count 9.1 10^3/uL (3.5-10.8)
[2021-10-17 18:02] LABS: Urine Appearance Turbid; Urine Bilirubin Negative (Negative); Urine Blood 1+ (Negative); Urine Color Amber; Urine Glucose Negative (Negative); Urine Ketones Trace (Negative); Urine Nitrite Negative (Negative); Urine Protein 1+(30 mg/dL) (Negative); Urine Specific Gravity 1.027 (1.002-1.030); Urine Urobilinogen Negative (Negative)
[2021-10-17 18:13] LABS: Urine Bacteria 1+ (Absent); Urine Red Blood Cell 3+(>10/hpf) (Absent); Urine Squamous Epithelial Cell Present (Absent); Urine White Blood Cell 3+(>20/hpf) (Absent)
[2021-10-17 18:21] LABS: ALT 11 U/L (7-52); AST 18 U/L (13-39); Albumin 4.4 g/dL (3.2-5.2); Albumin/Globulin Ratio 1.3 (1-3); Alkaline Phosphatase 91 U/L (35-149); Anion Gap 10 mmol/L (2-11); Blood Urea Nitrogen 10 mg/dL (6-24); CO2 Carbon Dioxide 22 mmol/L (22-32); Calcium 9.5 mg/dL (8.6-10.3); Chloride 106 mmol/L (101-111); Globulin 3.3 g/dL (2-4); Glucose 100 mg/dL (70-100); Potassium 3.7 mmol/L (3.5-5.0); Sodium 138 mmol/L (135-145); Total Protein 7.7 g/dL (6.4-8.9); eGFR CKD-EPI 71.3 (>60)
[2021-10-17 18:22] LABS: Urine Benzodiazepine Screen None Detected (None Detect); Urine Cannabinoids Screen None Detected (None Detect); Urine Opiates Screen None Detected (None Detect)
[2021-10-17 18:24] LABS: HCG Pregnancy < 0.60 mIU/mL
[2021-10-17 19:01] LABS: Alcohol, S < 13 mg/dL (<13); Salicylate < 2.50 mg/dL (<30)
[2021-10-17 19:02] LABS: Acetaminophen < 15 mcg/mL; TSH Ultra Thyroid Stim Horm 4.44 mcIU/mL (0.34-5.60)
[2021-10-17] MEDS ORDERED: Al Hydrox/Mg Hydrox/Simet LIQ 30 ML UDC PO PRN (21:55)
[2021-10-17 21:57] LABS: Rapid COVID-19 Molecular Undetected (Undetected)
[2021-10-18] MEDS: Vitamin THERAPEUTIC TAB PO SCH (07:55)
[2021-10-18] MEDS: DULoxetine DR 60 mg CAP PO SCH (07:55)
[2021-10-18] MEDS: Calcium Carb (TUMS) 500 mg CHEW TAB PO SCH ×2 (07:55→20:07)
[2021-10-19] MEDS: Vitamin THERAPEUTIC TAB PO SCH (08:02)
[2021-10-19] MEDS: DULoxetine DR 60 mg CAP PO SCH (08:02)
[2021-10-19] MEDS: Calcium Carb (TUMS) 500 mg CHEW TAB PO SCH ×2 (08:02→20:06)
[2021-10-20 08:30] LABS: HDL Cholesterol 47.6 mg/dL
[2021-10-20] MEDS ORDERED: Cholecalciferol (VIT D3) 400 units TAB PO SCH (09:00)
[2021-10-20] MEDS: DULoxetine DR 60 mg CAP PO SCH (09:59)
[2021-10-20] MEDS: Vitamin THERAPEUTIC TAB PO SCH (10:01)
[2021-10-20] MEDS: Calcium Carb (TUMS) 500 mg CHEW TAB PO SCH ×2 (14:27→20:25)
[2021-10-21] MEDS: Calcium Carb (TUMS) 500 mg CHEW TAB PO SCH ×2 (08:26→20:14)
[2021-10-21] MEDS: DULoxetine DR 60 mg CAP PO SCH (08:27)
[2021-10-21] MEDS: Vitamin THERAPEUTIC TAB PO SCH (08:27)
[2021-10-22] MEDS: Calcium Carb (TUMS) 500 mg CHEW TAB PO SCH ×2 (09:10→20:20)
[2021-10-22] MEDS: Vitamin THERAPEUTIC TAB PO SCH (09:12)
[2021-10-22] MEDS: DULoxetine DR 60 mg CAP PO SCH (09:12)
[2021-10-23 08:17] VITALS: BP 109/71
[2021-10-23] MEDS: DULoxetine DR 60 mg CAP PO SCH (08:39)
[2021-10-23] MEDS: Vitamin THERAPEUTIC TAB PO SCH (08:40)
[2021-10-23] MEDS: Calcium Carb (TUMS) 500 mg CHEW TAB PO SCH (08:44)
== END 2021-10-23 13:40 | disposition home or self-care (01) | DRG 885 ==
LOC: ED 17:11 → BSU 22:44
PROVIDERS: ADMIT Psychiatry & Neurology Psychiatry; ATTEND Psychiatry & Neurology Psychiatry